=== PATIENT | female | born 1945 | race Caucasian/White ===

== ENCOUNTER → 2020-03-19 | Outpatient (CLI) | payer MEDICARE, OTHER ==
[2020-03-19 13:17] LABS: HEMOGLOBIN 14.1 gm/dl (12.3-15.3); RED BLOOD COUNT 5.08 M/UL (4.00-5.10); WHITE BLOOD COUNT 6.3 K/UL (4.5-11.0)
[2020-03-19 13:42] LABS: BUN/CREATININE RATIO 25 (0-10)
[2020-03-21 14:13] LABS: CHOLESTEROL, TOTAL 156 mg/dL (100-199); HDL SIZE 8.6 nm (>=9.2); HDL-C 46 mg/dL (>39); HDL-P (TOTAL) 40.5 umol/L (>=30.5); LARGE HDL-P 2.3 umol/L (>=4.8); LARGE VLDL-P 5.2 nmol/L (<=2.7); LDL SIZE 20.3 nm (>20.5); LDL SIZE 20.3 nm (>=20.8); LDL-C 78 mg/dL (0-99); LDL-P 1378 nmol/L (<1000); LP-IR SCORE 77 (<=45); SMALL LDL-P 752 nmol/L (<=527); TRIGLYCERIDES 190 mg/dL (0-149); VLDL SIZE 52.9 nm (<=46.6)
== END ==
LOC: LAB 12:38
PROVIDERS: Emergency Medicine
DX: C73 Malignant neoplasm of thyroid gland (principal); E03.8 Other specified hypothyroidism; E21.0 Primary hyperparathyroidism; E78.2 Mixed hyperlipidemia
CPT/HCPCS: 36415; 80053; 85025

== ENCOUNTER → 2020-06-22 | Outpatient (CLI) | payer OTHER ==
[2020-06-22 12:56] LABS: BUN/CREATININE RATIO 21 (0-10)
== END ==
LOC: LAB 11:22
PROVIDERS: Emergency Medicine
DX: E21.0 Primary hyperparathyroidism (principal); E78.2 Mixed hyperlipidemia; Z88.8 Allergy status to other drugs, medicaments and biological substances; Z79.899 Other long term (current) drug therapy
CPT/HCPCS: 36415; 80048; 80162

== ENCOUNTER → 2020-08-04 | Outpatient (CLI) | payer OTHER ==
[2020-08-04 10:52] LABS: BUN/CREATININE RATIO 38 (0-10)
[2020-08-06 11:15] LABS: CHOLESTEROL, TOTAL 177 mg/dL (100-199); HDL SIZE 8.5 nm (>=9.2); HDL-C 43 mg/dL (>39); HDL-P (TOTAL) 37.7 umol/L (>=30.5); LARGE HDL-P <1.3 umol/L (>=4.8); LARGE VLDL-P 10.4 nmol/L (<=2.7); LDL SIZE 20.3 nm (>20.5); LDL SIZE 20.3 nm (>=20.8); LDL-C 85 mg/dL (0-99); LDL-P 1301 nmol/L (<1000); LP-IR SCORE 80 (<=45); SMALL LDL-P 860 nmol/L (<=527); TRIGLYCERIDES 299 mg/dL (0-149); VLDL SIZE 49.9 nm (<=46.6)
== END ==
LOC: LAB 09:09
PROVIDERS: Emergency Medicine
DX: M54.5 Low back pain (principal); M13.852 Other specified arthritis, left hip; E03.8 Other specified hypothyroidism; I48.21 Permanent atrial fibrillation; E78.2 Mixed hyperlipidemia
CPT/HCPCS: 36415; 72110; 73502; 80053; 80061; 83704

== ENCOUNTER → 2020-08-05 | Outpatient (CLI) | payer OTHER | LOC: HEART 5 15:41 | DX: J45.30 Mild persistent asthma, uncomplicated (principal); R06.02 Shortness of breath | CPT/HCPCS: 94060; 94729 ==

== ENCOUNTER 2020-12-19 17:17 | Emergency (ER) | payer OTHER ==
[2020-12-19 18:09] LABS: HEMOGLOBIN 14.9 gm/dl (12.3-15.3); RED BLOOD COUNT 5.06 M/UL (4.00-5.10); WHITE BLOOD COUNT 9.1 K/UL (4.5-11.0)
[2020-12-19 18:57] LABS: BUN/CREATININE RATIO 28 (0-10)
[2020-12-19] MEDS ORDERED: ANTIVERT 12.512.5 MG PO (20:58)
== END 2020-12-19 19:15 | disposition home or self-care (01) ==
LOC: ER1 17:17
PROVIDERS: Student in an Organized Health Care Education/Training Program
DX: H81.399 Other peripheral vertigo, unspecified ear (principal); I10 Essential (primary) hypertension; J45.909 Unspecified asthma, uncomplicated; I48.91 Unspecified atrial fibrillation; Z95.0 Presence of cardiac pacemaker; Z79.01 Long term (current) use of anticoagulants
CPT/HCPCS: 70450; 71045; 80053; 81001; 82550; 82553; 83874; 84484; 85025; 85610; 85730; 99285

== ENCOUNTER 2021-03-31 18:02 | Emergency (ER) | payer MEDICARE, OTHER ==
[~2021-03-31 18:02] MED LIST: ANTIVERT 12.512.5 MG PO
[2021-03-31 20:11] LABS: HEMOGLOBIN 14.2 gm/dl (12.3-15.3); RED BLOOD COUNT 5.1 M/UL (4.00-5.10); WHITE BLOOD COUNT 7.8 K/UL (4.5-11.0)
[2021-03-31 21:00] LABS: BUN/CREATININE RATIO 26 (0-10)
[2021-04-01] MEDS ORDERED: BENZONATATE100 MG PO (02:26)
[2021-04-01] MEDS ORDERED: PROVENTIL HFA6.7 GM INH (02:26)
[2021-04-01] MEDS ORDERED: ZYRTEC10 MG PO (02:26)
== END 2021-04-01 02:28 | disposition home or self-care (01) ==
LOC: ER1 18:02
PROVIDERS: Physician Assistant
DX: J06.9 Acute upper respiratory infection, unspecified (principal); R07.9 Chest pain, unspecified; I48.91 Unspecified atrial fibrillation; Z20.822 Contact with and (suspected) exposure to COVID-19; Z90.710 Acquired absence of both cervix and uterus; Z90.49 Acquired absence of other specified parts of digestive tract
CPT/HCPCS: 71045; 80053; 82550; 82553; 83874; 84484; 85025; 93005; 99285; U0002

== ENCOUNTER → 2021-05-17 | Outpatient (CLI) | payer MEDICARE, OTHER ==
[~2021-05-17] MED LIST changes: +BENZONATATE100 MG PO; +PROVENTIL HFA6.7 GM INH; +ZYRTEC10 MG PO
== END ==
LOC: HEART 5 08:00
DX: I48.91 Unspecified atrial fibrillation (principal); R06.02 Shortness of breath; I49.5 Sick sinus syndrome; I20.9 Angina pectoris, unspecified; I48.0 Paroxysmal atrial fibrillation; I27.20 Pulmonary hypertension, unspecified; I08.2 Rheumatic disorders of both aortic and tricuspid valves
CPT/HCPCS: 78452; 93306; A9502; J2785

== ENCOUNTER → 2021-06-10 | Outpatient (CLI) | payer MEDICARE, OTHER ==
[~2021-06-10] MED LIST changes: +PREDNISONE 20 M20 MG PO
== END ==
LOC: EXRD 11:16
DX: J20.9 Acute bronchitis, unspecified (principal); R50.9 Fever, unspecified; R91.8 Other nonspecific abnormal finding of lung field
CPT/HCPCS: 71046

== ENCOUNTER → 2021-06-11 | Outpatient (CLI) | payer MEDICARE, OTHER ==
[2021-06-11 09:38] LABS: HEMOGLOBIN 14.4 gm/dl (12.3-15.3); RED BLOOD COUNT 5.04 M/UL (4.00-5.10); WHITE BLOOD COUNT 7.6 K/UL (4.5-11.0)
== END ==
LOC: LAB 09:06
PROVIDERS: Nurse Practitioner
DX: J20.9 Acute bronchitis, unspecified (principal); R05.9 Cough, unspecified
CPT/HCPCS: 36415; 80053; 85025

== ENCOUNTER 2021-06-14 14:56 | Emergency (ER) | payer MEDICARE, OTHER ==
[~2021-06-14 14:56] MED LIST changes: -PREDNISONE 20 M20 MG PO
[2021-06-14 16:24] LABS: HEMOGLOBIN 13.8 gm/dl (12.3-15.3); RED BLOOD COUNT 4.87 M/UL (4.00-5.10); WHITE BLOOD COUNT 6.5 K/UL (4.5-11.0)
[2021-06-14 16:41] LABS: BUN/CREATININE RATIO 32 (0-10)
[2021-06-14] MEDS ORDERED: PREDNISONE 20 M20 MG PO (18:32)
[2021-06-14] MEDS ORDERED: BENZONATATE100 MG PO (18:33)
== END 2021-06-14 18:48 | disposition home or self-care (01) ==
LOC: ER1 14:56
PROVIDERS: Emergency Medicine
DX: J40 Bronchitis, not specified as acute or chronic (principal); I48.91 Unspecified atrial fibrillation; Z79.82 Long term (current) use of aspirin; Z20.822 Contact with and (suspected) exposure to COVID-19; Z79.01 Long term (current) use of anticoagulants; Z88.8 Allergy status to other drugs, medicaments and biological substances; Z86.711 Personal history of pulmonary embolism
CPT/HCPCS: 0240U; 71045; 80053; 82550; 82553; 83605; 83880; 84484; 85025; 85610; 85730; 87040; 93005; 99285

== ENCOUNTER → 2021-07-05 | Outpatient (CLI) | payer MEDICARE, OTHER ==
[~2021-07-05] MED LIST changes: +PREDNISONE 20 M20 MG PO
== END ==
LOC: CT 08:30
DX: J18.9 Pneumonia, unspecified organism (principal); R06.02 Shortness of breath; R91.8 Other nonspecific abnormal finding of lung field
CPT/HCPCS: 71260; Q9967

== ENCOUNTER → 2021-10-08 | Outpatient (CLI) | payer MEDICARE, OTHER ==
[2021-10-08 10:43] LABS: BUN/CREATININE RATIO 33 (0-10)
[2021-10-09 18:12] LABS: CHOLESTEROL, TOTAL 155 mg/dL (100-199); HDL SIZE 8.6 nm (>=9.2); HDL-C 51 mg/dL (>39); HDL-P (TOTAL) 40.9 umol/L (>=30.5); LARGE HDL-P 3.4 umol/L (>=4.8); LARGE VLDL-P 5.4 nmol/L (<=2.7); LDL SIZE 20.4 nm (>20.5); LDL SIZE 20.4 nm (>=20.8); LDL-C 75 mg/dL (0-99); LDL-P 971 nmol/L (<1000); LP-IR SCORE 83 (<=45); SMALL LDL-P 469 nmol/L (<=527); TRIGLYCERIDES 173 mg/dL (0-149); VLDL SIZE 55.4 nm (<=46.6)
== END ==
LOC: LAB 09:14
PROVIDERS: Emergency Medicine
DX: E03.8 Other specified hypothyroidism (principal); I48.21 Permanent atrial fibrillation; E78.2 Mixed hyperlipidemia; J41.0 Simple chronic bronchitis; J30.9 Allergic rhinitis, unspecified
CPT/HCPCS: 36415; 80053; 80061; 83704; 84443